=== PATIENT | male | born 1990 | race Hispanic/Latino ===

== ENCOUNTER 2017-11-17 12:52 | Emergency (ER) | payer SELFPAY ==
[2017-11-19] MEDS ORDERED: Prazosin HCl 1 MG CAP PO ONE (07:45)
[2017-11-19] MEDS ORDERED: Mag-Al 1200 mg/1200 mg/30 ML UDCUP ONE (10:11)
[2017-11-19] MEDS ORDERED: Ondansetron ODT 8 MG TAB ONE (10:11)
[2017-11-19] MEDS ORDERED: Prazosin HCl 1 MG CAP PO SCH (21:00)
== END 2017-11-20 03:06 ==
LOC: ERS 12:52
DX: R45.851 Suicidal ideations (principal); R45.850 Homicidal ideations; F43.10 Post-traumatic stress disorder, unspecified; Z79.899 Other long term (current) drug therapy
CPT/HCPCS: 99285